=== PATIENT | male | born 1945 | race Caucasian/White ===

== ENCOUNTER → 2024-04-29 | Outpatient (CLI) | payer MEDICARE, SELFPAY ==
--- NOTE | 2024-04-29 10:45 | MRI_ITS ---
INDICATION: LIVER LESION EXAMINATION: MRI - MR Abdomen With And Without Contrast TECHNIQUE: Multiplanar and multisequence MR images of the abdomen were obtained. IV Contrast Dosage and Agent: Yes COMPARISON: CT scan of the abdomen pelvis of 01/18/2024 FINDINGS: LIMITATIONS: Limited examination due to significant motion artifacts. The postcontrast images are particularly severe limited. LOWER CHEST: Suboptimal evaluated. Moderate size hiatal hernia. LIVER: Multiple nonenhancing well-defined cysts appears to be simple, the largest is in the left lobe measuring about 2.3 cm. GALLBLADDER AND BILIARY TREE: No filling defects in the gallbladder. No gallbladder distension or wall edema. No intra- or extrahepatic biliary ductal dilation. PANCREAS: No focal cystic or solid mass. SPLEEN: Normal size without focal cystic or solid mass. ADRENAL GLANDS: No nodules. KIDNEYS AND URETERS: Simple cyst in the left kidney measuring about 1.7 cm for which no further follow-up exam is needed. PERITONEUM: No evidence of free fluid. LYMPH NODES: No enlarged mesenteric or retroperitoneal lymph nodes. VESSELS: Aorta is non-dilated. MRI/MRI Abd WITH and W/O Contrast IMPRESSION: 1. Multiple liver cysts appear to be simple. 2. Left renal cyst appears to be simple. 3. Moderate hiatal hernia. 4. Limited examination due to significant motion artifacts. Electronically Signed: Casey Kessler MD at 9:35 EST ,
[2024-04-29 10:48] LABS: CREATININE FINGERSTICK < 1.0 mg/dL (0.70-1.30); EGFR FINGERSTICK > 60.0000 mL/min (>60)
== END | disposition home or self-care (01) ==
LOC: MRI 10:01
PROVIDERS: PCP Family Medicine; Referring Provider Family Medicine; Visit Provider Family Medicine
DX: R10.31 Right lower quadrant pain (principal); Z90.49 Acquired absence of other specified parts of digestive tract; K44.9 Diaphragmatic hernia without obstruction or gangrene; K76.9 Liver disease, unspecified
CPT/HCPCS: 74183; A9575; A4216

== ENCOUNTER → 2024-06-21 | Outpatient (CLI) | payer MEDICARE, SELFPAY ==
--- NOTE | 2024-06-21 11:57 | RAD_ITS ---
INDICATION: SIGMOID STRICTURE EXAMINATION/TECHNIQUE: Single contrast Barium enema was performed. Total Fluoroscopic Time: 36 seconds AND number of Fluoroscopic Images: 13 OR Radiation dosage index: 27.91 mGy. COMPARISON: No relevant prior comparison study available FINDINGS: Single contrast study precludes mucosal detail. There is evidence of the diverticulosis of the left hemicolon. There is redundancy of the sigmoid colon. There is a 9.3 cm x 6.4 cm polypoid filling defect in the sigmoid colon and possible obstruction. Clinical correlation recommended. RAD/Barium Enema No Air Cont IMPRESSION: 9.3 cm x 6.4 cm polypoid mass in the sigmoid colon as described. Possible obstruction. Diverticulosis of the left hemicolon. Electronically Signed: Aj Sampson MD at 13:26 EST ,
== END | disposition home or self-care (01) ==
LOC: RAD 11:55
PROVIDERS: PCP Family Medicine; Referring Provider Internal Medicine Gastroenterology; Visit Provider Internal Medicine Gastroenterology
DX: K56.609 Unspecified intestinal obstruction, unspecified as to partial versus complete obstruction (principal)
CPT/HCPCS: 74270